=== PATIENT | female | born 1950 | race Caucasian/White ===

== ENCOUNTER → 2018-03-07 | Outpatient (CLI) | payer OTHER | LOC: BRMIMAGING 07:39 | PROVIDERS: ATTEND Nurse Practitioner | DX: Z12.31 Encounter for screening mammogram for malignant neoplasm of breast (principal) ==

== ENCOUNTER → 2019-02-06 | Outpatient (CLI) | payer OTHER | LOC: CIMAGING 07:27 | PROVIDERS: ATTEND Physician Assistant | DX: R74.0 Nonspecific elevation of levels of transaminase and lactic acid dehydrogenase [LDH] (principal); K76.0 Fatty (change of) liver, not elsewhere classified | CPT/HCPCS: 76705-PO ==